=== PATIENT | female | born 1975 | race Native Hawaiian/Other Pacific Islander ===

== ENCOUNTER 2017-01-25 10:35 | Outpatient (CLI) | payer OTHER ==
[2017-01-25 11:03] VITALS: BP 123/82
== END 2017-01-25 14:00 | disposition home or self-care (01) ==
LOC: TRG 10:35
PROVIDERS: ATTEND Obstetrics & Gynecology
DX: O09.523 Supervision of elderly multigravida, third trimester (principal); O47.1 False labor at or after 37 completed weeks of gestation; Z3A.38 38 weeks gestation of pregnancy
CPT/HCPCS: 59025

== ENCOUNTER 2017-01-28 10:53 | Inpatient (IN) | payer OTHER ==
--- NOTE | 2017-01-28 11:54 | History and Physical Report ---
History of Present Illness Date of examination: 01/28/17 Date of admission: 01/28/17 10:54 Chief complaint: Painful contractions History of present illness: 41-year-old at 38+3 weeks presents in active labor, she is a [facility] patient. course complicated by GDM A1 otherwise unremarkable. Unfortunately, no records available at this time, she is 8 cm dilated. She is a Korean speaker with limited Hungarian Past History Past Medical History: no pertinent history Past Surgical History: cholecystectomy, [employer]/uterine surgery (status post laparoscopic oophorectomy per patient) [employer] History: denies: chlamydia, gonorrhea, hepatitis B, hepatitis C, herpes, HIV , syphilis, trichomonas Social history: , full code. denies: smoking, alcohol abuse, prescription drug abuse, IV drug use - Obstetrical History Expected Date of Delivery: 02/08/17 Actual Gestation: 38 Week(s) 3 Day(s) : 4 Para: 3 Medications and Allergies Allergies Allergy/AdvReac Type Severity Reaction Status Date / Time No Known Allergies Allergy Unverified 01/25/17 13:34 Home Medications Medication Instructions Recorded Confirmed Last Taken Type No Known Home Medications [No 01/25/17 01/25/17 Unknown History Reported Home Medications] Review of Systems Constitutional: no fever, no chills, no sweats, no fatigue, no weakness, no lethargy, no chronic headaches Cardiovascular: no chest pain, no orthopnea, no palpitations, no syncope, no lightheadedness, no shortness of breath, no dyspnea on exertion, no paroxysmal nocturnal dyspnea, no high blood pressure Respiratory: no cough with sputum, no hemoptysis, no shortness of breath, no dyspnea on exertion Gastrointestinal: no abdominal pain, no nausea, no vomiting, no coffee ground emesis Genitourinary: contractions, no vaginal bleeding, no vaginal discharge, no leakage of fluid - Vital Signs Vital signs: Vital Signs Pulse BP 68 134/82 01/28/17 11:15 01/28/17 11:15 Temp Pulse Resp BP Pulse Ox 97.8 F 68 16 134/82 01/28/17 11:20 01/28/17 11:20 01/28/17 11:20 01/28/17 11:20 - Physical Exam Abdomen: Positive: normal appearance, soft. Negative: distention, tenderness, guarding, rigidity Genitourinary (Female): Positive: normal external genitalia Vulva: both: normal Vagina: Positive: normal moisture. Negative: discharge Uterus: Positive: enlarged (EFW ~ ) Adnexa: both: normal Extremities: Positive: normal - Obstetrical FHR: category 1 Cervical Dilatation: 8 Cervical Effacement Percentage: 100 station: -1 Results All other labs normal. Assessment and Plan A: 41 y/o at 38+3 wks in active labour -Cat 1 tracing -AROMed with thick mec P: -Admit -Routine labs -Expectatnt management -Anticipate normal vaginal delivery - Patient Problems (1) 38 weeks gestation of Current Visit: Yes Status: Acute (2) Active labor at term Current Visit: Yes Status: Acute (3) Gestational diabetes mellitus (GDM) affecting Current Visit: Yes Status: Acute
[2017-01-28] MEDS ORDERED: BRETHINE IVP PRN (11:59)
[2017-01-28] MEDS ORDERED: ePHEDrine SULFATE IV PRN (11:59)
[2017-01-28] MEDS ORDERED: ZOFRAN IV PRN ×2 (11:59→13:05)
[2017-01-28] MEDS ORDERED: XYLOCAINE 2% INFILTRATI ONE (11:59)
[2017-01-28] MEDS ORDERED: SUBLIMAZE IV PRN (11:59)
[2017-01-28] MEDS ORDERED: BRETHINE SUB-Q PRN (11:59)
[2017-01-28] MEDS ORDERED: LACTATED RINGERS 1,000 ML IV SCH (12:00)
[2017-01-28] MEDS ORDERED: PITOCin/NS 30 UNIT/500ML 30 UNITS/500 ML BAG IV SCH ×2 (12:00)
[2017-01-28 12:38] LABS: Hematocrit 37.4 % (30.3-42.9); Hemoglobin 12.7 gm/dl (10.1-14.3); Mean Corpuscular HGB Conc 34 % (30-34); Mean Corpuscular Hemoglobin 30 pg (28-32); Mean Corpuscular Volume 87 fl (79-97); Platelet Count 227 K/mm3 (140-440); Red Blood Count 4.29 M/mm3 (3.65-5.03); Red Cell Distribution Width 15.6 % (13.2-15.2); White Blood Count 9.1 K/mm3 (4.5-11.0)
[2017-01-28] MEDS: PITOCin/NS 20 UNIT/1000ML DRIP 20 UNITS/1,000 ML BAG IV SCH ×2 (12:59→14:53)
[2017-01-28] MEDS ORDERED: BENADRYL PO PRN (13:05)
[2017-01-28] MEDS ORDERED: LANSINOH TP PRN (13:05)
[2017-01-28] MEDS ORDERED: PHENERGAN PO PRN (13:05)
[2017-01-28] MEDS ORDERED: TUCKS PAD TP PRN (13:05)
[2017-01-28] MEDS ORDERED: NORCO 5/325 PO PRN (13:05)
[2017-01-28] MEDS ORDERED: MILK OF MAGNESIA PO PRN (13:05)
[2017-01-28] MEDS ORDERED: DULCOLAX PR PRN (13:05)
[2017-01-28] MEDS ORDERED: TYLENOL PO PRN (13:05)
[2017-01-28] MEDS ORDERED: PHENERGAN PR PRN (13:05)
--- NOTE | 2017-01-28 13:05 | Procedure Note ---
OB Delivery Note - Delivery Date of Delivery: 01/28/17 Surgeon: MARELY SAVAGE Estimated blood loss: 200cc - Vaginal Delivery presentation: vertex Delivery position: OA Intrapartum events: meconium Delivery induction: none Delivery augmentation: rupture of membranes Delivery monitor: external FHT, external uterine Route of delivery: Delivery placenta: spontaneous Delivery cord: 3 umbilical vessels Episiotomy: none Delivery laceration: none Anesthesia: none - Infant A at 1 minute: 8 at 5 minutes: 9 Gender: Male (Time of Delivery is 12:52 PM, weight is 7#13 or 3542 g)
[2017-01-28 13:08] LABS: HIV-1 Antigen p24 Non React (Non React); HIVR-1/2 Ab Non React (Non React)
[2017-01-28] MEDS ORDERED: D50W (25GM) Syringe IV PRN (13:12)
[2017-01-28] MEDS ORDERED: SODIUM CHLORIDE FLUSH SYRINGE 10 ML IV NR (14:00)
[2017-01-28] MEDS: MOTRIN PO SCH ×2 (17:55→23:44)
[2017-01-28] MEDS ORDERED: MINERAL OIL PO PRN (22:00)
[2017-01-28] MEDS: COLACE PO SCH (23:44)
[2017-01-28] MEDS: SENOKOT S PO SCH (23:44)
[2017-01-28] MEDS: FEOSOL PO SCH (23:44)
[2017-01-29 00:56] LABS: Hematocrit 28.7 % (30.3-42.9); Hemoglobin 9.5 gm/dl (10.1-14.3)
--- NOTE | 2017-01-29 09:16 | Progress Note ---
Assessment and Plan PPD# 1 s/p -Doing well P: -Continue routine care -Anticipate discharge in 24-48 hours - Patient Problems (1) (normal spontaneous vaginal delivery) Current Visit: Yes Status: Acute (2) 38 weeks gestation of Current Visit: Yes Status: Acute (3) Active labor at term Current Visit: Yes Status: Acute (4) Gestational diabetes mellitus (GDM) affecting Current Visit: Yes Status: Acute Subjective - Subjective Date of service: 01/29/17 Principal diagnosis: PPD# 1 Interval history: Patient seen and examined, stable and well. No issues ambulate without difficulty. The bowel bladder function Patient reports: appetite normal, voiding normally, pain well controlled, flatus , ambulating normally, no dizzy ambulation, no nauseated [place]: doing well Objective - Vital Signs Latest vital signs: Vital Signs Temp Pulse Resp BP BP Pulse Ox 01/29/17 09:07 97.7 F 56 L 16 111/63 01/28/17 17:08 98.2 F 64 20 122/69 96 01/28/17 14:15 98.4 F 57 L 16 123/76 01/28/17 14:10 97.8 F 18 01/28/17 13:49 68 131/70 01/28/17 13:34 78 135/70 01/28/17 13:19 76 135/69 01/28/17 13:04 83 123/59 01/28/17 13:00 98.1 F 18 01/28/17 12:50 112 H 139/94 01/28/17 12:43 88 97 01/28/17 12:39 91 H 94 01/28/17 12:38 97 H 98 01/28/17 12:34 90 131/84 01/28/17 12:33 83 98 01/28/17 12:28 96 H 96 01/28/17 12:23 98 H 96 01/28/17 12:21 98 H 128/83 01/28/17 12:20 90 137/83 01/28/17 12:18 89 97 01/28/17 12:15 93 H 94 01/28/17 12:13 95 H 97 01/28/17 12:08 90 98 01/28/17 12:04 80 127/80 94 01/28/17 12:03 89 96 01/28/17 11:56 98.9 F 18 01/28/17 11:20 97.8 F 68 16 134/82 01/28/17 11:15 68 134/82 Intake and Output 01/28/17 01/29/17 01/29/17 23:59 07:59 15:59 Intake Total 200 Output Total 400 Balance -200 Intake: Oral 200 Output: Urine 400 Void 400 Other: Total, Intake Amount 200 Total, Output Amount 400 - Exam Abdomen: Present: normal appearance, soft. Absent: distention, tenderness, guarding, rigidity Uterus: Present: firm, fundal height below umbilicus Extremities: Present: normal - Labs Labs: Abnormal lab results 01/28/17 01/28/17 01/28/17 Range/Units 11:50 16:58 21:32 Hgb (10.1-14.3) gm/dl Hct (30.3-42.9) % RDW 15.6 H (13.2-15.2) % POC Glucose 190 H 118 H (70-105) 01/29/17 01/29/17 Range/Units 00:35 08:19 Hgb 9.5 L D (10.1-14.3) gm/dl Hct 28.7 L D (30.3-42.9) % RDW (13.2-15.2) % POC Glucose 68 L (70-105)
--- NOTE | 2017-01-29 09:23 | Discharge Summary ---
Providers - Providers Date of Admission: 01/28/17 10:54 Date of discharge: 01/30/17 Attending physician: MARELY SAVAGE Primary care physician: MARELY SAVAGE Hospitalization Reason for admission: active labor, IUP at term Delivery: Episiotomy: none Laceration: none Other procedures: none complications: none Discharge diagnosis: IUP at term delivered [place] baby: male Hospital course: Uncomplicated course Condition at discharge: Good Disposition: DC-01 TO HOME OR SELFCARE - Discharge Diagnoses (1) (normal spontaneous vaginal delivery) Status: Acute (2) 38 weeks gestation of Status: Acute (3) Active labor at term Status: Acute (4) Gestational diabetes mellitus (GDM) affecting Status: Acute Plan - Discharge Medications Prescriptions: Ibuprofen [Motrin 600 MG tab] 600 mg PO Q8H PRN #30 tablet PRN Reason: Pain Multivitamin with Iron [Multivitamins with Iron] 1 each PO DAILY #30 tablet - Provider Discharge Summary Activity: no sex for 6 weeks, no heavy lifting 4 weeks, no strenuous exercise Diet: routine Additional instructions: [] Smoking cessation referral if applicable(refer to patient education folder for contact #) [] Refer to [facility]'s [facility] Booklet Call your doctor immediately for: * Fever > 100.5 * Heavy vaginal bleeding ( >1 pad per hour) * Severe persistent headache * Shortness of breath * Reddened, hot, painful area to leg or breast * Drainage or odor from incision. * Keep incision clean and dry at all times and follow doctor's instructions regarding bathing/showering - Follow up plan Follow up: MARELY SAVAGE MD [Primary Care Provider] - 6 Weeks
[2017-01-29] MEDS ORDERED: PRENATAL VITAMIN PO SCH (10:00)
[2017-01-29] MEDS: FEOSOL PO SCH (10:30)
[2017-01-29] MEDS: COLACE PO SCH (10:30)
[2017-01-29] MEDS: SENOKOT S PO SCH (14:31)
[2017-01-29] MEDS: MOTRIN PO SCH (14:32)
[2017-01-30] MEDS: MOTRIN PO SCH ×2 (00:05→06:00)
[2017-01-30] MEDS: FEOSOL PO SCH (00:05)
[2017-01-30] MEDS: COLACE PO SCH (00:05)
[2017-01-30 13:22] VITALS: BP 125/70
== END 2017-01-30 12:45 | disposition home or self-care (01) | DRG 775 ==
LOC: TRG 10:53 → LD 10:54 → OB 15:08
PROVIDERS: ADMIT Obstetrics & Gynecology Gynecology; ATTEND Obstetrics & Gynecology Gynecology
PROC: 10E0XZZ Delivery of Products of Conception, External Approach (ICD-10-PCS; principal; 2017-01-28)
DX: O24.429 Gestational diabetes mellitus in childbirth, unspecified control (principal); Z3A.38 38 weeks gestation of pregnancy; Z37.0 Single live birth; O77.0 Labor and delivery complicated by meconium in amniotic fluid
CPT/HCPCS: 36415; 82962; 85014; 85018; 85027; 86592; 86706; 86762; 86803; 86850; 86900; 86901; 87806; 99211; G0463; J1815; J2590; J7120